=== PATIENT | male | born 1950 | race Two or more races ===

== ENCOUNTER 2022-04-07 07:30 | Day surgery (SDC) | payer OTHER | END 2022-04-07 13:15 | disposition home or self-care (01) | LOC: AMB-ENDOS 07:30 | PROVIDERS: ATTEND Colon & Rectal Surgery | DX: K63.5 Polyp of colon (principal); K57.30 Diverticulosis of large intestine without perforation or abscess without bleeding; K64.8 Other hemorrhoids; Z88.0 Allergy status to penicillin ==

== ENCOUNTER 2022-08-20 08:49 | Day surgery (SDC) | payer OTHER | END 2022-08-20 16:25 | disposition home or self-care (01) | LOC: AMB-ENDOS 08:49 | PROVIDERS: ATTEND Colon & Rectal Surgery | DX: D12.4 Benign neoplasm of descending colon (principal); D12.5 Benign neoplasm of sigmoid colon; K57.30 Diverticulosis of large intestine without perforation or abscess without bleeding; K64.8 Other hemorrhoids; Z20.822 Contact with and (suspected) exposure to COVID-19 ==

== ENCOUNTER 2023-12-30 08:10 | Day surgery (SDC) | payer OTHER ==
[2023-12-30] MEDS ORDERED: ONDANSETRON HCL 2 MG/ML VIAL IV ONE (12:30)
[2023-12-30] MEDS ORDERED: DIPHENHYDRAMINE HCL 50 MG/ML VIAL 1ML IV ONE (12:30)
[2023-12-30] MEDS ORDERED: fentaNYL CITRATE 50 MCG/ML AMPUL IV PUSH ONE (12:30)
== END 2023-12-30 13:35 | disposition home or self-care (01) ==
LOC: AMB-ENDOS 08:10
PROVIDERS: ATTEND Colon & Rectal Surgery
DX: D12.2 Benign neoplasm of ascending colon (principal); K63.5 Polyp of colon